=== PATIENT | female | born 1950 | race Asian ===

== ENCOUNTER 2022-11-22 11:26 | Day surgery (SDC) | payer OTHER, MEDICARE ==
[~2022-11-22 11:26] MED LIST: FERRIC CARBOXYMALTOSE 750 MG in SODIUM CHLORIDE 250 ML IVPB ONE
[2022-11-22 17:15] VITALS: BP 134/59; PULSE 60; RESP 15; TEMP 98.6
== END 2022-11-22 13:00 | disposition home or self-care (01) ==
LOC: JONCNONCHE 11:26
PROVIDERS: ATTEND Internal Medicine Hematology & Oncology
PROC: 3E033GC Introduction of Other Therapeutic Substance into Peripheral Vein, Percutaneous Approach (ICD-10-PCS; principal; 2022-11-22)
DX: D50.9 Iron deficiency anemia, unspecified (principal)
CPT/HCPCS: 96365; J1439

== ENCOUNTER 2022-11-29 11:20 | Day surgery (SDC) | payer OTHER, MEDICARE ==
[2022-11-29 16:24] VITALS: BP 120/67; PULSE 56; RESP 18; TEMP 98.4
== END 2022-11-29 12:56 | disposition home or self-care (01) ==
LOC: JONCNONCHE 11:20
PROVIDERS: ATTEND Internal Medicine Hematology & Oncology
PROC: 3E033GC Introduction of Other Therapeutic Substance into Peripheral Vein, Percutaneous Approach (ICD-10-PCS; principal; 2022-11-29)
DX: D50.9 Iron deficiency anemia, unspecified (principal)
CPT/HCPCS: 96365; J1439